=== PATIENT | male | born 1990 | race Caucasian/White ===

== ENCOUNTER 2018-01-04 05:11 | Emergency (ER) | payer MEDICAID ==
[~2018-01-04] VITALS: Ht 175.3 cm; Wt 90.9 kg
[2018-01-04 08:20] VITALS: BP 103/65
== END 2018-01-04 08:31 | disposition left against medical advice (07) ==
LOC: EMS 05:13
DX: S63.502A Unspecified sprain of left wrist, initial encounter (principal); S00.93XA Contusion of unspecified part of head, initial encounter; F10.129 Alcohol abuse with intoxication, unspecified; F17.210 Nicotine dependence, cigarettes, uncomplicated; F12.90 Cannabis use, unspecified, uncomplicated; Y04.0XXA Assault by unarmed brawl or fight, initial encounter; Y93.89 Activity, other specified; Y92.89 Other specified places as the place of occurrence of the external cause; Y99.8 Other external cause status
CPT/HCPCS: 99284